=== PATIENT | female | born 1985 | race African-American/Black ===

== ENCOUNTER 2017-07-23 23:53 | Emergency (ER) | payer MEDICAID ==
[2017-07-23 23:59] VITALS: BP 141/91
== END 2017-07-24 01:00 | disposition left against medical advice (07) ==
LOC: ER 23:53
DX: Z53.21 Procedure and treatment not carried out due to patient leaving prior to being seen by health care provider (principal)

== ENCOUNTER 2017-10-13 17:10 | Emergency (ER) | payer MEDICAID ==
--- NOTE | 2017-10-13 18:11 | ER Document Report ---
ED Medical Screen (RME) - General Chief Complaint: Dizziness Stated Complaint: DIZZY Time Seen by Provider: 10/13/17 18:07 Notes: Patient complains of dizziness and left-sided chest pain. TRAVEL OUTSIDE OF THE [place] IN LAST 30 DAYS: No - Related Data Allergies/Adverse Reactions: codeine [Codeine] Allergy (Severe, Verified 10/13/17 18:05) as child Sulfa (Sulfonamide Antibiotics) Allergy (Severe, Verified 10/13/17 18:05) as child Past Medical History - Social History Chew tobacco use (# tins/day): No Frequency of alcohol use: Occasional Drug Abuse: None - Past Medical History Cardiac Medical History: Reports: Hx Heart Murmur - hx of Denies: Hx Hypertension Renal/ Medical History: Denies: Hx Peritoneal Dialysis Infectious Medical History: Denies: Hx HIV - Immunizations Hx Diphtheria, Pertussis, Tetanus Vaccination: Yes - 12/27/15 Physical Exam - Vital signs Vitals: Temp Pulse Resp BP Pulse Ox 98.6 F 86 14 133/67 H 100 10/13/17 17:15 10/13/17 17:15 10/13/17 17:15 10/13/17 17:15 10/13/17 17:15 Course - Vital Signs Vital signs: Temp Pulse Resp BP Pulse Ox 98.6 F 86 14 133/67 H 100 10/13/17 17:15 10/13/17 17:15 10/13/17 17:15 10/13/17 17:15 10/13/17 17:15
[2017-10-13 18:44] LABS: ABSOLUTE LYMPHOCYTES (AUTO) 1.7 10^3/uL (0.5-4.7); ABSOLUTE MONOCYTES (AUTO) 0.3 10^3/uL (0.1-1.4); ABSOLUTE NEUT (AUTO) 3.8 10^3/uL (1.7-8.2); BASOPHILS % (AUTO) 0.8 % (0-2); EOSINOPHILS % (AUTO) 0.6 % (0-6); HEMATOCRIT 24.2 % (36.0-47.0); LYMPHOCYTES % (AUTO) 29.4 % (13-45); MEAN CORPUSCULAR HEMOGLOBIN 17.1 pg (27.0-33.4); MEAN CORPUSCULAR HGB CONC 29.8 g/dL (32.0-36.0); MONOCYTES % (AUTO) 5.3 % (3-13); PLATELET COUNT 275 10^3/uL (150-450); RED BLOOD COUNT 4.22 10^6/uL (3.72-5.28); RED CELL DISTRIBUTION WIDTH 17.8 % (11.5-14.0); SEGMENTED NEUTROPHILS % (AUTO) 63.9 % (42-78); TOTAL CELLS COUNTED % (AUTO) 100 %; WHITE BLOOD COUNT 5.9 10^3/uL (4.0-10.5)
[2017-10-13 18:54] LABS: APPEARANCE,URINE CLEAR; BILIRUBIN,URINE NEGATIVE (NEGATIVE); COLOR,URINE STRAW; GLUCOSE, URINE NEGATIVE (NEGATIVE); KETONES,URINE NEGATIVE (NEGATIVE); LEUKOCYTE ESTERASE,URINE NEGATIVE (NEGATIVE); NITRITE,URINE NEGATIVE (NEGATIVE); PROTEIN,URINE NEGATIVE (NEGATIVE); URINE SPECIFIC GRAVITY 1.006; UROBILINOGEN,URINE NEGATIVE mg/dL (<2.0)
[2017-10-13 18:59] LABS: ALANINE AMINOTRANSFERASE 26 U/L (9-52); ALBUMIN 4.4 g/dL (3.5-5.0); ALKALINE PHOSPHATASE 54 U/L (38-126); ANION GAP 11 (5-19); ASPARTATE AMINO TRANSFERASE 21 U/L (14-36); BILIRUBIN,DIRECT 0.2 mg/dL (0.0-0.4); BILIRUBIN,TOTAL 0.3 mg/dL (0.2-1.3); BLOOD UREA NITROGEN 10 mg/dL (7-20); CALCIUM 9.2 mg/dL (8.4-10.2); CARBON DIOXIDE 23 mmol/L (22-30); CHLORIDE 105 mmol/L (98-107); GLUCOSE 82 mg/dL (75-110); POTASSIUM 4.2 mmol/L (3.6-5.0); TOTAL PROTEIN 7.5 g/dL (6.3-8.2)
[2017-10-13 19:08] LABS: ANISOCYTOSIS 1+; PLATELET COMMENT ADEQUATE
[2017-10-13 19:12] LABS: OVALOCYTES 2+; POIKILOCYTOSIS 2+; TEAR DROP CELLS 1+
[2017-10-13 19:13] LABS: MEAN CORPUSCULAR VOLUME 57 fl (80-97); PLATELET LARGE PRESENT
[2017-10-13 19:15] LABS: HEMOGLOBIN 7.2 g/dL (12.0-15.5)
--- NOTE | 2017-10-13 20:18 | RADIOLOGY REPORT (SQ) ---
EXAM DESCRIPTION: CHEST 2 VIEWS COMPLETED DATE/TIME: 10/13/2017 7:15 pm REASON FOR STUDY: left cp COMPARISON: None. TECHNIQUE: Frontal and lateral radiographic views of the chest acquired. NUMBER OF VIEWS: Two view. LIMITATIONS: None. FINDINGS: LUNGS AND PLEURA: No opacities, masses or pneumothorax. No pleural effusion. MEDIASTINUM AND HILAR STRUCTURES: No masses or contour abnormalities. HEART AND VASCULAR STRUCTURES: Heart normal size. No evidence for failure. BONES: No acute findings. HARDWARE: None in the chest. OTHER: No other significant finding. IMPRESSION: NO SIGNIFICANT RADIOGRAPHIC FINDING IN THE CHEST. TECHNICAL DOCUMENTATION: JOB ID: [id number] [employer]- All Rights Reserved Reading location - IP/workstation name: [email or web address]
[2017-10-13] MEDS ORDERED: NORMAL SALINE 250 ML IV PRN (20:55)
--- NOTE | 2017-10-13 20:56 | ER Document Report ---
ED Dizziness/Weakness - General Chief Complaint: Dizziness Stated Complaint: DIZZY Time Seen by Provider: 10/13/17 18:07 Notes: 31-year-old female to emergency department complaining of dizziness. States she almost passed out. Has history of iron deficiency anemia but has not been taking her medications for quite some time. Just recently moved to the area from [place]. Denies any chest pain, headache or other issues at this time. Denies being . Denies any recent surgeries. Denies any vomiting of blood or dark stools or bright red blood in her stool. She denies heavy vaginal bleeding. TRAVEL OUTSIDE OF THE [place] IN LAST 30 DAYS: No - Related Data Allergies/Adverse Reactions: codeine [Codeine] Allergy (Severe, Verified 10/13/17 18:05) as child Sulfa (Sulfonamide Antibiotics) Allergy (Severe, Verified 10/13/17 18:05) as child Past Medical History - General Information source: Patient - Social History Smoking Status: Never Smoker Chew tobacco use (# tins/day): No Frequency of alcohol use: Occasional Drug Abuse: None Lives with: Family Family History: None, Other - Anemia not sickle cell Patient has suicidal ideation: No Patient has homicidal ideation: No - Medical History Notes: Iron deficiency anemia - Past Medical History Cardiac Medical History: Reports: Hx Heart Murmur - hx of Denies: Hx Hypertension Renal/ Medical History: Denies: Hx Peritoneal Dialysis Infectious Medical History: Denies: Hx HIV Past Surgical History: Reports: Hx Section - x2 - Immunizations Hx Diphtheria, Pertussis, Tetanus Vaccination: Yes - 12/27/15 Review of Systems - Review of Systems Constitutional: Malaise, Weakness. denies: Fever EENT: No symptoms reported Cardiovascular: Palpitations, Dizziness, Lightheaded. denies: Syncope, Edema Respiratory: No symptoms reported Gastrointestinal: No symptoms reported Genitourinary: No symptoms reported Female Genitourinary: No symptoms reported Musculoskeletal: No symptoms reported Skin: No symptoms reported Hematologic/Lymphatic: Anemia. denies: Blood clots, Easy bleeding, Easy bruising Neurological/Psychological: No symptoms reported Physical Exam - Vital signs Vitals: Temp Pulse Resp BP Pulse Ox 98.6 F 86 14 133/67 H 100 10/13/17 17:15 10/13/17 17:15 10/13/17 17:15 10/13/17 17:15 10/13/17 17:15 Interpretation: Normal - General General appearance: Appears well, Alert - HEENT Head: Normocephalic, Atraumatic Eyes: Normal Pupils: PERRL - Respiratory Respiratory status: No respiratory distress Chest status: Nontender Breath sounds: Normal Chest palpation: Normal - Cardiovascular Rhythm: Regular Heart sounds: Normal auscultation Murmur: No - Abdominal Inspection: Normal Distension: No distension Bowel sounds: Normal Tenderness: Nontender Organomegaly: No organomegaly - Back Back: Normal, Nontender - Extremities General upper extremity: Normal inspection, Nontender, Normal color, Normal ROM , Normal temperature General lower extremity: Normal inspection, Nontender, Normal color, Normal ROM , Normal temperature, Normal weight bearing. No: Luli's sign - Neurological Neuro grossly intact: Yes Cognition: Normal Orientation: AAOx4 Jn Coma Scale Eye Opening: Spontaneous Jn Coma Scale Verbal: Oriented Jn Coma Scale Motor: Obeys Commands [place] Coma Scale Total: 15 Speech: Normal Motor strength normal: LUE, RUE, LLE, RLE Sensory: Normal - Psychological Associated symptoms: Normal affect, Normal mood - Skin Skin Temperature: Warm Skin Moisture: Dry Skin Color: Normal Course - Re-evaluation Re-evalutation: 10/13/17 22:17 In with fairly profound anemia. Instructed patient she needed transfusion. Patient refused. States all she wants is some iron and wants to go home. I have advised against this. Patient was given strict instructions that she should return immediately if symptoms get worse. Initial dose of iron given in the emergency department. Patient does state that she is taking iron sulfate in the past without problems even though she has an allergy/reported allergy to sulfa. At this time I will give her follow-up information for a stacker straightener. Patient will be asked to sign out AMA. - Vital Signs Vital signs: Temp Pulse Resp BP Pulse Ox 98.6 F 84 15 141/78 H 100 10/13/17 17:15 10/13/17 18:00 10/13/17 21:23 10/13/17 21:23 10/13/17 21:23 - Laboratory Result Diagrams: 10/13/17 18:21 10/13/17 18:21 Laboratory results interpreted by me: 10/13/17 18:21 Hgb 7.2 L Hct 24.2 L MCV 57 L MCH 17.1 L MCHC 29.8 L RDW 17.8 H Discharge - Discharge Clinical Impression: Iron deficiency anemia Qualifiers: Iron deficiency anemia type: unspecified iron deficiency Qualified Code(s): D50.9 - Iron deficiency anemia, unspecified Condition: Good Disposition: HOME, SELF-CARE Instructions: Anemia, Iron Deficiency ([facility]) Additional Instructions: In the event that your symptoms get worse you should return immediately. Please follow-up with the stacker straightener as soon as possible. Of note, he refused blood transfusion today against doctor's advice. In the event your symptoms get worse there is no condemnation her judgment about you coming back here. We want to see you! Please do not hesitate to return if symptoms are getting worse and you are feeling like you need to be seen Prescriptions: Ferrous Sulfate 325 mg PO DAILY 90 Days #90 tablet Referrals: HOLLIS PASTRANA MD [ACTIVE STAFF] - Follow up in 3-5 days
[2017-10-13] MEDS ORDERED: FERROUS SULFATE 325 MG TABLET PO ONE (21:14)
[2017-10-13 21:31] VITALS: BP 141/78
== END 2017-10-13 21:33 | disposition home or self-care (01) ==
LOC: ER 17:10
DX: D50.9 Iron deficiency anemia, unspecified (principal); R42 Dizziness and giddiness; R53.81 Other malaise; R53.1 Weakness; R00.2 Palpitations; Z88.5 Allergy status to narcotic agent; Z88.2 Allergy status to sulfonamides; Z53.20 Procedure and treatment not carried out because of patient's decision for unspecified reasons
CPT/HCPCS: 99284; 36415; 85025; 81025; 80053; 81001; 71046; J3490

== ENCOUNTER 2018-01-27 16:40 | Emergency (ER) | payer MEDICAID ==
--- NOTE | 2018-01-27 18:59 | ER Document Report ---
ED Medical Screen (RME) - General Chief Complaint: Abdominal Pain Stated Complaint: ABDOMINAL PAIN Time Seen by Provider: 01/27/18 18:45 TRAVEL OUTSIDE OF THE [place] IN LAST 30 DAYS: No - HPI Notes: 01/27/18 18:59 32-year-old female presents to the ED with complaints of abdominal pain 5 days. Patient states she had obstructive sexual intercourse 5 days ago, she took the Plan B pill the next day, denies any vaginal bleeding. Reports pain is 4 out of 10, throbbing achy. Patient states she cannot be seen by MAKE UP ARRANGER until February 14. Would like to be seen tonight because she is concerned about cysts in her pelvic area. Eating and drinking without issues. Has not tried any [id number] medications for pain. s1 s2 regular lungs cta I have greeted and performed a rapid initial assessment of this patient. A comprehensive ED assessment and evaluation of the patient, analysis of test results and completion of medical decision making process will be conducted by an additional ED providers. - Related Data Allergies/Adverse Reactions: codeine [Codeine] Allergy (Severe, Verified 01/27/18 16:41) as child Sulfa (Sulfonamide Antibiotics) Allergy (Severe, Verified 01/27/18 16:41) as child Past Medical History - Past Medical History Cardiac Medical History: Reports: Hx Heart Murmur - hx of Denies: Hx Hypertension Renal/ Medical History: Denies: Hx Peritoneal Dialysis Infectious Medical History: Denies: Hx HIV Past Surgical History: Reports: Hx Section - x2 - Immunizations Hx Diphtheria, Pertussis, Tetanus Vaccination: Yes - 12/27/15 Physical Exam - Vital signs Vitals: Temp Pulse Resp BP Pulse Ox 98.2 F 67 18 138/76 H 100 01/27/18 17:16 01/27/18 17:16 01/27/18 17:16 01/27/18 17:16 01/27/18 17:16 Course - Vital Signs Vital signs: Temp Pulse Resp BP Pulse Ox 98.2 F 67 18 138/76 H 100 01/27/18 17:16 01/27/18 17:16 01/27/18 17:16 01/27/18 17:16 01/27/18 17:16
[2018-01-27 21:43] LABS: ABSOLUTE EOSINOPHILS # (AUTO) 0.1 10^3/uL (0.0-0.6); ABSOLUTE MONOCYTES (AUTO) 0.3 10^3/uL (0.1-1.4); ABSOLUTE NEUT (AUTO) 2.6 10^3/uL (1.7-8.2); BASOPHILS % (AUTO) 0.8 % (0-2); EOSINOPHILS % (AUTO) 2.5 % (0-6); HEMATOCRIT 37.4 % (36.0-47.0); HEMOGLOBIN 12.4 g/dL (12.0-15.5); LYMPHOCYTES % (AUTO) 39.9 % (13-45); MEAN CORPUSCULAR HEMOGLOBIN 26.9 pg (27.0-33.4); MEAN CORPUSCULAR HGB CONC 33.2 g/dL (32.0-36.0); MEAN CORPUSCULAR VOLUME 81 fl (80-97); MONOCYTES % (AUTO) 5.7 % (3-13); PLATELET COUNT 248 10^3/uL (150-450); RED BLOOD COUNT 4.61 10^6/uL (3.72-5.28); RED CELL DISTRIBUTION WIDTH 15.5 % (11.5-14.0); SEGMENTED NEUTROPHILS % (AUTO) 51.1 % (42-78); TOTAL CELLS COUNTED % (AUTO) 100 %; WHITE BLOOD COUNT 5.1 10^3/uL (4.0-10.5)
[2018-01-27 21:48] LABS: APPEARANCE,URINE SLIGHTLY-CLOUDY; BILIRUBIN,URINE NEGATIVE (NEGATIVE); COLOR,URINE YELLOW; GLUCOSE, URINE NEGATIVE (NEGATIVE); KETONES,URINE NEGATIVE (NEGATIVE); LEUKOCYTE ESTERASE,URINE NEGATIVE (NEGATIVE); NITRITE,URINE NEGATIVE (NEGATIVE); PROTEIN,URINE NEGATIVE (NEGATIVE); URINE SPECIFIC GRAVITY 1.015; UROBILINOGEN,URINE NEGATIVE mg/dL (<2.0)
[2018-01-27 22:01] LABS: ANISOCYTOSIS SLIGHT; HYPOCHROMASIA SLIGHT; PLATELET COMMENT ADEQUATE; TEAR DROP CELLS SLIGHT; TOXIC GRANULATION SLIGHT
[2018-01-27 22:06] LABS: ALANINE AMINOTRANSFERASE 35 U/L (9-52); ALBUMIN 4.2 g/dL (3.5-5.0); ALKALINE PHOSPHATASE 59 U/L (38-126); ANION GAP 13 (5-19); ASPARTATE AMINO TRANSFERASE 25 U/L (14-36); BILIRUBIN,DIRECT 0.2 mg/dL (0.0-0.4); BILIRUBIN,TOTAL 0.3 mg/dL (0.2-1.3); BLOOD UREA NITROGEN 9 mg/dL (7-20); CALCIUM 9.6 mg/dL (8.4-10.2); CARBON DIOXIDE 26 mmol/L (22-30); CHLORIDE 106 mmol/L (98-107); GLUCOSE 89 mg/dL (75-110); LIPASE 54.6 U/L (23-300); POTASSIUM 4.7 mmol/L (3.6-5.0); SODIUM 144.5 mmol/L (137-145); TOTAL PROTEIN 7.4 g/dL (6.3-8.2)
--- NOTE | 2018-01-27 22:12 | RADIOLOGY REPORT (SQ) ---
EXAM DESCRIPTION: U/S NON OB PEL TV W/DOPPLER COMPLETED DATE/TIME: 01/27/2018 10:01 pm REASON FOR STUDY: pelvic pain LMP 01/19/2018 COMPARISON: None. TECHNIQUE: Dynamic and static grayscale images acquired of the pelvis via transvaginal approach and recorded on PACS. Additional selected color Doppler and spectral images recorded. LIMITATIONS: None. FINDINGS: UTERUS: Normal contour. Question 1 cm fibroid the posterior myometrium. ENDOMETRIAL STRIPE: No focal or generalized thickening. No masses. CERVIX: 3.4 cm. No nabothian cysts. RIGHT OVARY AND DOPPLER: Normal size. No worrisome masses. Normal arterial vascular flow without evid ence for torsion. LEFT OVARY AND DOPPLER: Ovary not seen. FREE FLUID: Small amount of free fluid is present in the posterior cul-de-sac. OTHER: No other significant finding. MEASUREMENTS: UTERUS: 10.6 x 5.2 x 5.6 cm. ENDOMETRIAL STRIPE: 5 mm. RIGHT OVARY: 2.6 x 2.1 x 2 cm. LEFT OVARY: Ovary not seen. IMPRESSION: There appears to be a small uterine fibroid. No acute findings are seen in the abdomen or pelvis. The left ovary could not be seen. TECHNICAL DOCUMENTATION: JOB ID: [id number] [employer]- All Rights Reserved Rev-11/05 Reading location - IP/workstation name: [email or web address]
[2018-01-27 23:12] LABS: CHLAM PCR NOT DETECTED (NOT DETECT); GON PCR NOT DETECTED (NOT DETECT)
--- NOTE | 2018-01-27 23:28 | ER Document Report ---
ED General - General Chief Complaint: Abdominal Pain Stated Complaint: ABDOMINAL PAIN Time Seen by Provider: 01/27/18 18:45 TRAVEL OUTSIDE OF THE [place] IN LAST 30 DAYS: No - HPI Patient complains to provider of: Abdominal pain Notes: Patient coming in for evaluation of abdominal pain. Patient states approximately 2 3 days ago after having unprotected sex did take Plan B. Patient states increased cramping just want to come in to make sure everything was okay. Patient denies any fevers chills nausea vomiting diarrhea denies any heavy bleeding. Patient resting comfortably upon my evaluation - Related Data Allergies/Adverse Reactions: codeine [Codeine] Allergy (Severe, Verified 01/27/18 16:41) as child Sulfa (Sulfonamide Antibiotics) Allergy (Severe, Verified 01/27/18 16:41) as child Past Medical History - Social History Smoking Status: Never Smoker Chew tobacco use (# tins/day): No Frequency of alcohol use: None Drug Abuse: None Family History: None, Other - Anemia not sickle cell Patient has suicidal ideation: No Patient has homicidal ideation: No - Past Medical History Cardiac Medical History: Reports: Hx Heart Murmur - hx of Denies: Hx Hypertension Renal/ Medical History: Denies: Hx Peritoneal Dialysis Infectious Medical History: Denies: Hx HIV Past Surgical History: Reports: Hx Section - x2 - Immunizations Hx Diphtheria, Pertussis, Tetanus Vaccination: Yes - 12/27/15 Review of Systems - Review of Systems Constitutional: No symptoms reported EENT: No symptoms reported Cardiovascular: No symptoms reported Respiratory: No symptoms reported Gastrointestinal: Abdominal pain Genitourinary: No symptoms reported Female Genitourinary: No symptoms reported Musculoskeletal: No symptoms reported Skin: No symptoms reported Hematologic/Lymphatic: No symptoms reported Neurological/Psychological: No symptoms reported -: Yes All other systems reviewed and negative Physical Exam - Vital signs Vitals: Temp Pulse Resp BP Pulse Ox 98.2 F 67 18 138/76 H 100 01/27/18 17:16 01/27/18 17:16 01/27/18 17:16 01/27/18 17:16 01/27/18 17:16 Interpretation: Normal - General General appearance: Appears well, Alert - HEENT Head: Normocephalic, Atraumatic Eyes: Normal Pupils: PERRL - Respiratory Respiratory status: No respiratory distress Chest status: Nontender Breath sounds: Normal Chest palpation: Normal - Cardiovascular Rhythm: Regular Heart sounds: Normal auscultation Murmur: No - Abdominal Inspection: Normal Distension: No distension Bowel sounds: Normal Tenderness: Nontender Organomegaly: No organomegaly - Back Back: Normal, Nontender - Extremities General upper extremity: Normal inspection, Nontender, Normal color, Normal ROM , Normal temperature General lower extremity: Normal inspection, Nontender, Normal color, Normal ROM , Normal temperature, Normal weight bearing. No: Luli's sign - Neurological Neuro grossly intact: Yes Cognition: Normal Orientation: AAOx4 [place] Coma Scale Eye Opening: Spontaneous [place] Coma Scale Verbal: Oriented Jn Coma Scale Motor: Obeys Commands [place] Coma Scale Total: 15 Speech: Normal Motor strength normal: LUE, RUE, LLE, RLE Sensory: Normal - Psychological Associated symptoms: Normal affect, Normal mood - Skin Skin Temperature: Warm Skin Moisture: Dry Skin Color: Normal Course - Re-evaluation Re-evalutation: 01/28/18 01:29 The patient presents with abdominal pain without signs of peritonitis or other life-threatening or serious etiology. The patient appears stable for discharge and has been instructed to return immediately if the symptoms worsen in any way , or in 8-12hr if not improved for re-evaluation. The patient has been instructed to return if the symptoms worsen or change in any way. Patient does have a fibroid on the ultrasound patient was educated about the fibroid more likely exacerbating some of her pain due to the Plan B. Patient is to follow- up with her KNUCKLER will call for her STD results - Vital Signs Vital signs: Temp Pulse Resp BP Pulse Ox 99.2 F 68 18 136/68 H 100 01/27/18 20:17 01/27/18 20:17 01/27/18 17:16 01/27/18 20:17 01/27/18 20:17 - Laboratory Result Diagrams: 01/27/18 21:00 01/27/18 21:00 Laboratory results interpreted by me: 01/27/18 21:00 MCH 26.9 L RDW 15.5 H Discharge - Discharge Clinical Impression: Abdominal pain Qualifiers: Abdominal location: generalized Qualified Code(s): R10.84 - Generalized abdominal pain Condition: Good Disposition: HOME, SELF-CARE Instructions: Abdominal Pain ([facility]) Additional Instructions: Her laboratory studies today do not show any signs of infection no signs of . Her ultrasound does show a small uterine fibroid which may be causing some cramping and increased abdominal pain due to the Plan B. Please make sure that she follow-up with her KNUCKLER return to ER if symptoms worsen. Take Tylenol Motrin for pain control. At this time your gonorrhea and chlamydia testing is pending. He can call back tomorrow for the results if they are positive he will need to come back to the ER to be treated Prescriptions: Ibuprofen [Motrin 600 mg Tablet] 600 mg PO Q8HP PRN #21 tablet PRN Reason:
[2018-01-27 23:47] VITALS: BP 135/77
== END 2018-01-27 23:29 | disposition home or self-care (01) ==
LOC: ER 16:40
DX: R10.84 Generalized abdominal pain (principal); Z88.6 Allergy status to analgesic agent; Z88.2 Allergy status to sulfonamides
CPT/HCPCS: 36415; 76830; 80053; 81001; 83690; 84702; 85025; 87491; 87591; 93976; 99284